=== PATIENT | female | born 1960 | race Asian ===

== ENCOUNTER 2021-09-25 07:10 | Day surgery (SDC) | payer OTHER ==
[~2021-09-25] VITALS: Ht 175.3 cm; Wt 76.2 kg
[2021-09-25] MEDS ORDERED: fentaNYL citrate 0.05 MG/ML VIAL ONE (08:22)
[2021-09-25] MEDS ORDERED: LIDOCAINE 2% 100 MG/5 ML UJET TP ONE (08:23)
[2021-09-25] MEDS ORDERED: fentaNYL citrate 0.05 MG/ML VIAL IVP ONE (10:40)
== END 2021-09-25 09:27 | disposition home or self-care (01) ==
LOC: MDS 07:10 → MMU 07:11 → MDS 09:27
PROVIDERS: ATTEND Internal Medicine Gastroenterology
DX: K62.5 Hemorrhage of anus and rectum (principal); Z20.822 Contact with and (suspected) exposure to COVID-19
CPT/HCPCS: 45378; J3010